=== PATIENT | female | born 1990 | race African-American/Black ===

== ENCOUNTER 2017-05-10 16:50 | Emergency (ER) | payer OTHER ==
[2017-05-10 17:25] LABS: URINE HCG POC HCG NEGATIVE (Negative)
[2017-05-10 17:33] LABS: ADD MAN DIFF? NO
[2017-05-10 17:34] LABS: BILIRUBIN,URINE NEGATIVE (NEG); CLARITY,URINE CLEAR; COLOR,URINE YELLOW; GLUCOSE,URINE NEGATIVE (NEG); NITRITE,URINE NEGATIVE (NEG); PROTEIN,URINE NEGATIVE (NEG-TRACE)
[2017-05-10 17:39] LABS: BASO % 1 % (0-3); EOS # 0.1 x10^3/uL (0.0-0.7); EOS % 1 % (0-3); HEMATOCRIT 27.8 % (36.0-47.0); HEMOGLOBIN 9.9 g/dL (12.0-15.5); LYMPH # 1.2 x10^3/uL (1.0-4.8); LYMPH % 27 % (24-48); MEAN CORPUSCULAR HEMOGLOBIN 30 pg (25-35); MEAN CORPUSCULAR HGB CONC 36 g/dL (31-37); MEAN CORPUSCULAR VOLUME 84 fL (79-100); MONO # 0.2 x10^3/uL (0.0-1.1); MONO % 4 % (0-9); NEUT # 3.1 x10^3uL (1.8-7.7); NEUT % 67 % (31-73); PLATELET COUNT 226 x10^3/uL (140-400); RED BLOOD COUNT 3.31 x10^6/uL (3.50-5.40); RED CELL DISTRIBUTION WIDTH 15.5 % (11.5-14.5); WHITE BLOOD COUNT 4.6 x10^3/uL (4.0-11.0)
[2017-05-10 17:45] LABS: BACTERIA,URINE 0 /HPF (0-FEW); RBC,URINE OCC /HPF (0-2); SQUAMOUS EPITHELIAL CELL,UR MOD /LPF; WBC,URINE 0 /HPF (0-4)
[2017-05-14 14:21] LABS: CHLAMYDIA PROBE Negative (Negative); GC PROBE Negative (Negative)
== END 2017-05-10 18:50 | disposition home or self-care (01) ==
LOC: ER 16:50
DX: N93.8 Other specified abnormal uterine and vaginal bleeding (principal); Z98.890 Other specified postprocedural states; Z90.49 Acquired absence of other specified parts of digestive tract
CPT/HCPCS: 36415; 81001; 81025; 85025; 87491; 87591; 99284; Q0111

== ENCOUNTER 2017-09-29 14:25 | Emergency (ER) | payer SELFPAY, OTHER ==
[2017-09-29 15:18] LABS: URINE HCG POC HCG NEGATIVE (Negative)
[2017-09-29 15:19] LABS: BILIRUBIN,URINE SMALL (NEG); CLARITY,URINE CLEAR; GLUCOSE,URINE NEGATIVE (NEG); NITRITE,URINE NEGATIVE (NEG); PROTEIN,URINE NEGATIVE (NEG-TRACE)
[2017-09-29 15:25] LABS: COLOR,URINE DK YELLOW
[2017-09-29 15:26] LABS: BACTERIA,URINE FEW /HPF (0-FEW); RBC,URINE RARE /HPF (0-2); SQUAMOUS EPITHELIAL CELL,UR MOD /LPF; WBC,URINE OCC /HPF (0-4)
[2017-09-29] MEDS: cefTRIAXone IM 250 MG VIAL IM (16:09)
[2017-09-29] MEDS: metroNIDAZOLE 500 MG TABLET PO (16:11)
[2017-09-29] MEDS: AZITHROMYCIN 250 MG TABLET. PO (16:11)
[2017-10-02 20:11] LABS: CHLAMYDIA PROBE Negative (Negative); GC PROBE Negative (Negative)
== END 2017-09-29 17:00 | disposition home or self-care (01) ==
LOC: ER 17:00
DX: N76.0 Acute vaginitis (principal); B96.89 Other specified bacterial agents as the cause of diseases classified elsewhere; Z20.2 Contact with and (suspected) exposure to infections with a predominantly sexual mode of transmission
CPT/HCPCS: 81001; 81025; 87491; 87591; 96372; 99284; J0696; Q0111; Q0144

== ENCOUNTER 2020-02-10 18:57 | Emergency (ER) | payer SELFPAY ==
[2017-09-29 14:36] VITALS: BP 142/105
[~2020-02-10 18:57] MED LIST: CLIN40CR VG; METR500T PO
== END 2020-02-10 19:13 | disposition left against medical advice (07) ==
LOC: ER 18:57
DX: H92.01 Otalgia, right ear (principal); Z53.21 Procedure and treatment not carried out due to patient leaving prior to being seen by health care provider